=== PATIENT | male | born 1985 | race Caucasian/White ===

== ENCOUNTER 2021-07-20 16:02 | Emergency (ER) | payer MEDICAID, SELFPAY ==
[2021-07-20 16:09] VITALS: BP 155/91; PULSE 111; RESP 18; O2SAT 99
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
[2021-07-20] MEDS: Ketorolac 30 MG/ML VIAL IM (16:56)
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
== END 2021-07-20 18:14 | disposition home or self-care (01) ==
PROVIDERS: Emergency Provider Nurse Practitioner Family; PCP Family Medicine
DX: R68.84 Jaw pain (principal); K08.89 Other specified disorders of teeth and supporting structures; W22.8XXA Striking against or struck by other objects, initial encounter
CPT/HCPCS: 96372; 99284; 70486; 99283; J1885

== ENCOUNTER 2022-07-23 09:14 | Emergency (ER) | payer MEDICAID, SELFPAY ==
[2022-07-23 09:26] VITALS: BP 132/93; PULSE 96; RESP 18; TEMP 38.2; O2SAT 95
--- NOTE | 2022-07-23 10:49 | ED.GENADUL_ITS ---
Discharge Plan Disposition Patient Disposition: Home Condition: Stable Discharge Details Clinical Impression: Influenza Primary Care Provider: Kimani Escalante ED Provider: Sae Girard Home Meds and New Rx's Prescriptions: New oseltamivir 75 mg capsule 75 mg PO Q12H 5 Days Qty: 10 0RF benzonatate 200 mg capsule 200 mg PO TID PRN (Reason: cough) Qty: 9 0RF Continued bupropion HCl 300 mg tablet extended release 24 hr 300 mg PO Label Comments: TAKE 1 TABLET BY MOUTH ONCE A DAY dexmethylphenidate [Focalin XR] 40 mg capsule,ER biphasic 50-50 40 mg PO DAILY ketorolac 10 mg tablet 10 mg PO TID PRN (Reason: pain) Qty: 14 0RF Discharge Instructions Instructions: Influenza (ED) Additional Instructions: You can take 1000mg tylenol and 600mg ibuprofen every 6 hours as needed if not improving this week follow up with your primary care provider if you feel more ill, have persistent vomiting or worsening trouble breathing return to the emergency department Medical Decision Making 36 yo male who denies chronic medical problems, is a smoker, comes in with subjective fevers and chills along with cough for 2 days. He denies any chest pain, dyspnea, abdominal pain, n/v, rashes. Denies excessive alcohol use or drug use other than marijuana. He arrives stable speaking in full sentences and appears well, is noted to have a temp of 38.2. He has clear lung sounds, no murmurs, no jvd, no abdominal tenderness, no leg swelling or calf tenderness. Suspect viral illness, given well appearance and normal lung sounds doubt pneumonia, will obtain flu and covid antigen tests and reassess. pt positive for flu A and remains stable, will intiate tamiflu and advised to f/u with pcp this week if not improving, return precautions given Differential Diagnosis Differential Diagnosis: flu, covid, pneumonia HPI General Mode of arrival: ambulatory . Date/Time Provider Initiated Documentation: 07/23/22 09:29 . Limitations to Documentation: no limitations . Information obtained by: patient . History of Present Illness 36 year old M presents to the emergency department with the chief complaint of cough, described as moderate, Patient started experiencing this day(s) (2) and it has been intermittent. No relieving factors improve symptom(s), No exacerbating factors reported . Patient notes fever/chills. Patient did receive the following treatments prior to arrival, none Related Data Home Medications Medication Instructions Recorded Confirmed bupropion HCl 300 mg 24 hr tablet, 300 mg PO 07/20/21 extended release dexmethylphenidate 40 mg 40 mg PO DAILY 07/20/21 07/20/21 capsule,extended release [id number] (Focalin XR) ketorolac 10 mg tablet 10 mg PO TID PRN pain #14 tabs 07/20/21 benzonatate 200 mg capsule 200 mg PO TID PRN cough #9 caps 07/23/22 oseltamivir 75 mg capsule 75 mg PO Q12H 5 days #10 caps 07/23/22 Previous Rx's Medication Instructions Recorded ketorolac 10 mg tablet 10 mg PO TID PRN pain #14 tabs 07/20/21 benzonatate 200 mg capsule 200 mg PO TID PRN cough #9 caps 07/23/22 oseltamivir 75 mg capsule 75 mg PO Q12H 5 days #10 caps 07/23/22 Allergies Allergy/AdvReac Type Severity Reaction Status Date / Time No Known Allergies Allergy Unverified 02/14/17 12:51 General Stated Complaint: RespSymp KARENA: 4 Review of Systems All systems reviewed & are unremarkable except as noted in HPI and below Constitutional Constitutional: Denies weakness Cardiovascular Cardiovascular: Denies chest pain and Denies dyspnea Respiratory Respiratory: Denies dyspnea Gastrointestinal Gastrointestinal: Denies abdominal pain, Denies nausea and Denies vomiting Integumentary/Breasts Skin/Breast: Denies rash Neurologic Neurologic: Denies weakness PFSH All Active Problems (Updated 07/23/22 @ 10:53 by Sae Girard MD) Influenza (Acute) Surgical History RFA L GSV (04/30/15) DEBORAH Social History Smoking/Tobacco Use Status: Current every day Tobacco Type: cigarettes Smoking risk assessment performed?: Yes Alcohol Intake: current Alcohol Intake frequency: a few times a month Drug use: Occasionally Substance use type: marijuana Do you feel safe at home: Yes Do you feel safe in your relationship?: Yes Exam Const General: no acute distress Orientation: alert HENOK Head: normal to inspection Ears: external ears normal General nose exam: external nose normal Mouth: moist mucous membranes Eyes General: appearance normal, both eyes and all related structures Neck Neck: normal visual inspection Resp Effort & Inspection: normal respiratory effort and able to speak in complete sentences Auscultation: clear to auscultation bilaterally Cardio Rate: regular rate Heart Sounds: no murmurs Skin General skin exam: no rashes or lesions noted Neuro General: patient alert and patient oriented x3 Extrem General: normal to inspection Psych Mental Status: mental status grossly normal Course Vital Signs Vital signs: Vital Signs Temperature 38.2 C H 07/23/22 09:26 Pulse 96 H 07/23/22 09:26 Respiratory Rate 18 07/23/22 09:26 Blood Pressure 132/93 H 07/23/22 09:26 Pulse Oximetry 95 07/23/22 09:26 Temperature 38.2 C H 07/23/22 09:26 Temperature Source Temporal Artery Scan 07/23/22 09:26 Pulse 96 H 07/23/22 09:26 Respiratory Rate 18 07/23/22 09:26 Respiratory Effort Short of Breath 07/23/22 10:48 Respiratory Depth Normal 07/23/22 10:48 Blood Pressure 132/93 H 07/23/22 09:26 Blood Pressure Position Sitting 07/23/22 09:26 Pulse Oximetry 95 07/23/22 09:26 Oxygen Delivery Method Room Air 07/23/22 09:26 Oxygen Flow Rate 0 07/23/22 09:26 Pain Level 8 07/23/22 09:26 PAWSS Have you Been Recently Intoxicated or Drunk Within the Last 30 days?: No Have you Ever Experienced Previous Episodes of Alcohol Withdrawal?: No Have you ever Experienced Withdrawal Seizures?: No Have you ever Experienced Delirium Tremens(DT)s?: No Have you ever undergone Alcohol Rehabilitation Treatment (i.e, inpt ot outpatient treatment programs)?: No Have you ever Experienced Blackouts?: No Have you ever Combined Alcohol with other Downers within the last 90 days?: No Have you ever Combined Alcohol with any other Substance of Abuse during the last 90 days?: No Result: 0
== END 2022-07-23 10:58 | disposition home or self-care (01) ==
PROVIDERS: Emergency Provider Emergency Medicine; PCP Family Medicine
DX: J10.1 Influenza due to other identified influenza virus with other respiratory manifestations (principal)
CPT/HCPCS: 99283; 99284

== ENCOUNTER 2023-03-29 07:29 | Emergency (ER) | payer MEDICAID, SELFPAY | END 2023-03-29 09:20 | disposition home or self-care (01) | PROVIDERS: Emergency Provider Registered Nurse Emergency; PCP Family Medicine | DX: L03.116 Cellulitis of left lower limb (principal) | CPT/HCPCS: 99283; 99284 ==

== ENCOUNTER 2023-11-26 11:30 | Emergency (ER) | payer MEDICAID, SELFPAY ==
[2023-11-26 11:32] VITALS: BP 146/87; PULSE 91; RESP 18; TEMP 36.7; O2SAT 99
--- NOTE | 2023-11-26 11:58 | W.ED.GENAD ---
Discharge Plan Disposition Patient Disposition: Home Condition: Stable Discharge Details Clinical Impression: Cellulitis of left upper extremity Primary Care Provider: Kimani Escalante ED Provider: Howard Alvarado Home Meds and New Rx's Prescriptions: New cephalexin 500 mg capsule 500 mg PO QID Qty: 28 0RF sulfamethoxazole-trimethoprim [Bactrim DS] 800-160 mg tablet 1 tab PO BID Qty: 14 0RF Continued bupropion HCl 300 mg tablet extended release 24 hr 300 mg PO DAILY Patient Comments: TAKE 1 TABLET BY MOUTH ONCE A DAY dexmethylphenidate [Focalin XR] 40 mg capsule,ER biphasic 50-50 40 mg PO DAILY Discharge Instructions Instructions: Cellulitis (ED) Additional Instructions: Please take full course of both antibiotics as prescribed. If symptoms or not improving in 24 hours or are worsening, please return to the ER for reevaluation. Please contact your primary care physician to arrange follow-up. Return to the ER immediately for any worsening or new concerning symptoms. Referrals: Kimani Escalante [Primary Care Provider] - [facility] General Mode of arrival: ambulatory. Date/Time Provider Initiated Documentation: 11/26/23 11:48. Limitations to Documentation: no limitations. Information obtained by: patient. HPI Narrative: 38-year-old male smoker here with chief complaint of left hand inflammation. Patient notes hand started to swell yesterday morning. He had redness and associated pain. Redness now extending up his arm. Patient states he had similar infection that was associated with an abscess about a year ago that was successfully treated outpatient with antibiotics. He does not recall any specific injury recently. No puncture wound. No cat bite. No IV drug use. Patient denies associated fever. Otherwise feels well. Related Data Home Medications Medication Instructions Recorded Confirmed bupropion HCl 300 mg 24 hr tablet, 300 mg PO DAILY 07/20/21 11/26/23 extended release dexmethylphenidate 40 mg 40 mg PO DAILY 07/20/21 11/26/23 capsule,extended release [id number] (Focalin XR) cephalexin 500 mg capsule 500 mg PO QID #28 caps 11/26/23 sulfamethoxazole 800 1 tab PO BID #14 tabs 11/26/23 mg-trimethoprim 160 mg tablet (Bactrim DS) Previous Rx's Medication Instructions Recorded cephalexin 500 mg capsule 500 mg PO QID #28 caps 11/26/23 sulfamethoxazole 800 1 tab PO BID #14 tabs 11/26/23 mg-trimethoprim 160 mg tablet (Bactrim DS) Allergies Allergy/AdvReac Type Severity Reaction Status Date / Time No Known Allergies Allergy Unverified 11/26/23 11:36 General Stated Complaint: Cellulitis KARENA: 3 Review of Systems Constitutional Constitutional: Denies fever(s) Integumentary/Breasts Skin/Breast: Reports as per HPI Exam Const General: cooperative and no acute distress HENMT Mouth: moist mucous membranes Eyes Conjunctivae: normal conjunctivae Sclera: normal sclerae Cardio Rate: regular rate and not tachycardic Rhythm: regular rhythm Skin Rashes: rashes noted (Erythema dorsal left hand, streaking up left arm) Neuro General: patient alert, patient awake, patient oriented x3 and tone normal Extrem Left upper extremity: hand Details: neuromotor exam normal, neurosensory exam normal, tendon exam normal, vascular exam Details: radial pulse present Details: 2+, swelling Location: of the dorsal hand and other (Erythema tracking laterally up ext to proximal upper arm) Course Vital Signs Vital signs: Vital Signs Temperature 36.7 C 11/26/23 11:32 Pulse 91 H 11/26/23 11:32 Respiratory Rate 18 11/26/23 11:32 Blood Pressure 146/87 H 11/26/23 11:32 Pulse Oximetry 99 11/26/23 11:32 Temperature 36.7 C 11/26/23 11:32 Temperature Source Skin 11/26/23 11:32 Pulse 91 H 11/26/23 11:32 Respiratory Rate 18 11/26/23 11:32 Blood Pressure 146/87 H 11/26/23 11:32 Blood Pressure Position Sitting 11/26/23 11:32 Pulse Oximetry 99 11/26/23 11:32 Oxygen Delivery Method Room Air 11/26/23 11:32 Oxygen Flow Rate 0 11/26/23 11:32 Pain Level 8 11/26/23 11:32 Medical Decision Making 1200 -- 38-year-old male here with cellulitis of the left hand with associated lymphangitis. No abscess. No signs of systemic illness. Patient is afebrile and hemodynamically stable. Suspect acute streptococcal infection versus staph. Plan to initiate treatment with cephalexin and Bactrim. Usual customary discharge instructions were reviewed with the patient. PCP office records reviewed: Tetanus up-to-date 2018 Quality:SDOH Health Related Social Needs: No Data to Display PFSH All Active Problems Cellulitis of left upper extremity (Acute) Surgical History RFA L GSV (04/30/15) DEBORAH Social History Smoking/Tobacco Use Status: Current every day Tobacco Type: cigarettes Smoking risk assessment performed?: Yes Alcohol Intake: current Alcohol Intake frequency: a few times a month Drug use: Occasionally Substance use type: marijuana Do you feel safe at home: Yes Do you feel safe in your relationship?: Yes
[2023-11-26] MEDS: Cephalexin 500 MG CAP PO (12:07)
[2023-11-26] MEDS: Sulfameth/Trimeth DS TAB 1 TAB PO (12:07)
[2023-11-26 12:08] VITALS: BP 146/87; PULSE 91; RESP 18; TEMP 36.7; O2SAT 99
== END 2023-11-26 12:49 | disposition home or self-care (01) ==
PROVIDERS: Emergency Provider Student in an Organized Health Care Education/Training Program; PCP Family Medicine
DX: L03.114 Cellulitis of left upper limb (principal); F17.210 Nicotine dependence, cigarettes, uncomplicated
CPT/HCPCS: 99283